=== PATIENT | female | born 1940 ===

== ENCOUNTER 2019-05-06 14:17 | Outpatient (CLI) | payer OTHER | END 2019-05-06 14:36 | disposition home or self-care (01) | LOC: LAB 14:17 | DX: E03.8 Other specified hypothyroidism (principal) ==

== ENCOUNTER 2019-05-06 14:57 | Outpatient (CLI) | payer OTHER | END 2019-05-06 15:00 | disposition home or self-care (01) | LOC: SONOGRAMA 14:57 | DX: E04.1 Nontoxic single thyroid nodule (principal); E03.4 Atrophy of thyroid (acquired) ==

== ENCOUNTER 2020-04-24 08:56 | Outpatient (CLI) | payer OTHER | END 2020-04-24 09:00 | disposition home or self-care (01) | LOC: RX STUDY 08:56 | PROVIDERS: ATTEND Otolaryngology | DX: R13.13 Dysphagia, pharyngeal phase (principal) ==

== ENCOUNTER 2023-09-08 13:25 | Outpatient (CLI) | payer OTHER | END 2023-09-08 13:40 | disposition home or self-care (01) | LOC: TOM 13:25 | PROVIDERS: ATTEND Specialist | DX: I63.9 Cerebral infarction, unspecified (principal); Z86.73 Personal history of transient ischemic attack (TIA), and cerebral infarction without residual deficits ==